=== PATIENT | male | born 1960 | race African-American/Black ===

== ENCOUNTER 2016-07-01 08:22 | Emergency (ER) | payer MEDICARE, OTHER ==
[~2016-07-01] VITALS: Ht 203.2 cm; Wt 150.0 kg
[~2016-07-01 08:22] MED LIST: HYDR-3971 PO; HYDR25TA PO; LISI-660 PO
[2016-07-01] MEDS: HYDROCODONE/ACETAMINOPHEN 5-325 MG TABLET PO ONE (08:43)
[2016-07-01] MEDS: IBUPROFEN 600 MG TABLET PO ONE (08:43)
[2016-07-01] MEDS: COLCHICINE 0.6 MG TABLET PO ONE (08:44)
[2016-07-01 09:49] VITALS: BP 154/79
== END 2016-07-01 09:50 | disposition home or self-care (01) ==
LOC: EMS 08:24
DX: M10.9 Gout, unspecified (principal); I10 Essential (primary) hypertension; E78.00 Pure hypercholesterolemia, unspecified; F17.210 Nicotine dependence, cigarettes, uncomplicated; Z88.5 Allergy status to narcotic agent
CPT/HCPCS: 99284